=== PATIENT | male | born 1940 | race Caucasian/White ===

== ENCOUNTER 2020-05-09 14:38 | Emergency (ER) | payer OTHER, MEDICARE ==
--- NOTE | 2020-05-09 15:13 | EDM.PDOC ---
ED HPI GENERAL MEDICAL PROBLEM - General Chief Complaint: General Time Seen by Provider: 05/09/20 15:00 Source of Information: Reports: Patient History Limitations: Reports: No Limitations - History of Present Illness INITIAL COMMENTS - FREE TEXT/NARRATIVE: pt comes from home with c/o productive cough, SOB and fever progressively worsening since yesterday, report right elbow pain after a fall he sustained 3 days ago, denies any other injuries or any other medical concerns. pt lives with , denies recent travel or known sick contact, his sats on arrival are 88 , RR 24, P 125 . - Related Data Allergies Allergy/AdvReac Type Severity Reaction Status Date / Time codeine Allergy Hives Verified 05/09/20 15:01 Penicillins Allergy Hives Verified 05/09/20 15:01 ED ROS GENERAL - Review of Systems Review Of Systems: See Below Constitutional: Reports: Fever, Chills, Fatigue HEENT: Reports: No Symptoms Respiratory: Reports: Shortness of Breath, Wheezing, Cough Cardiovascular: Reports: No Symptoms GI/Abdominal: Reports: Bloody Stool, Diarrhea. Denies: Abdominal Pain : Reports: No Symptoms Musculoskeletal: Reports: No Symptoms Skin: Reports: No Symptoms Neurological: Reports: No Symptoms ED EXAM, GENERAL - Physical Exam Exam: See Below Exam Limited By: No Limitations General Appearance: Alert, Anxious, Moderate Distress Eye Exam: Bilateral Eye: Normal Inspection Ears: Normal External Exam, Normal Canal Nose: Normal Inspection Throat/Mouth: Normal Inspection, Normal Oropharynx Head: Atraumatic, Normocephalic Neck: Normal Inspection, Supple, Non-Tender Respiratory/Chest: No Respiratory Distress, Crackles, Rhonchi, Wheezing Cardiovascular: Normal Peripheral Pulses, Regular Rate, Rhythm, No JVD, No Murmur GI/Abdominal: Normal Bowel Sounds, Soft, Non-Tender, No Distention Back Exam: Normal Inspection Extremities: Normal Inspection, Normal Range of Motion, Other (cellulits noted at lateral side of right elbow, ROM at elbow is full. ) Neurological: Alert, Oriented, CN II-XII Intact Skin Exam: Warm Course - Vital Signs Text/Narrative:: labs/ CXR results were explained to pt and his son . pt is resting comfortable , sats at mid 90s on 2 liters, HR down to 105 after fluid bolus, SBP at 120. Blood cultures were taken , pt will be given now Rocephin and Zithromax, was given earlier duo nebs and tyelnol. there are no available beds at this facility now , Dr Kaplan at [facility] was consulted and was in acceptance of pt care. Last Recorded V/S: Last Vital Signs Temp 37.8 C 05/09/20 17:18 Pulse 105 H 05/09/20 17:18 Resp 22 H 05/09/20 17:18 BP 121/67 05/09/20 17:18 Pulse Ox 95 05/09/20 17:18 - Orders/Labs/Meds Orders: Active Orders 24 hr Category Date Time Status RT Aerosol Therapy [RC] ASDIRECTED Care 05/09/20 15:16 Active Chest 1V Frontal [CR] Stat Exams 05/09/20 15:15 Taken Elbow Min 3V Rt [CR] Stat Exams 05/09/20 15:15 Taken COVID-19 SARS COV-2 AB, IGG Routine Lab 05/09/20 15:45 Received COVID-19 SARS COV-2 AB, IGM Stat Lab 05/09/20 15:45 Received CULTURE BLOOD [BC] Urgent Lab 05/09/20 15:30 Received CULTURE BLOOD [BC] Urgent Lab 05/09/20 15:45 Received Acetaminophen [Tylenol] Med 05/09/20 15:15 Active 650 mg PO Q4H PRN Sodium Chloride 0.9% [Normal Saline] Med 05/09/20 15:15 Active 1,000 ml IV ASDIRECTED Sodium Chloride 0.9% [Normal Saline] 1,000 ml Med 05/09/20 16:15 Active IV ASDIRECTED Blood Culture x2 Reflex Set [OM.PC] Urgent Oth 05/09/20 15:17 Ordered Isolation [COMM] Routine Oth 05/09/20 15:16 Ordered Medication Orders Acetaminophen (Tylenol) 650 mg PO Q4H PRN PRN Reason: Fever Last Admin: 05/09/20 16:00 Dose: 650 mg Documented by: JIMMY Sodium Chloride (Normal Saline) 1,000 mls @ 400 mls/hr IV ASDIRECTED ZENIA Sodium Chloride (Normal Saline) 1,000 ml IV ASDIRECTED ZENIA Labs: Laboratory Tests 05/09/20 05/09/20 05/09/20 Range/Units 15:28 15:45 15:45 WBC 27.9 H (4.5-12.0) X10-3/uL RBC 4.96 (4.30-5.75) x10(6)uL Hgb 15.1 (13.5-17.8) g/dL Hct 45.9 (30.0-51.3) % MCV 92.4 (80-96) fL MCH 30.5 (27.7-33.6) pg MCHC 33.0 (32.2-35.4) g/dL RDW 12.8 (11.5-15.5) % Plt Count 259 (125-369) X10(3)uL Sodium 136 (135-145) mmol/L Potassium 3.9 (3.5-5.3) mmol/L Chloride 101 (100-110) mmol/L Carbon Dioxide 22 (21-32) mmol/L BUN 21 H (7-18) mg/dL Creatinine 1.7 H (0.70-1.30) mg/dL Est Cr Clr Drug Dosing TNP Estimated GFR (MDRD) 39 L (>60) BUN/Creatinine Ratio 12.4 (9-20) Glucose 116 (80-116) mg/dL Lactic Acid (0.4-2.0) mmol/L Calcium 8.8 (8.6-10.2) mg/dL Total Bilirubin 0.5 (0.1-1.3) mg/dL AST 41 H (5-25) IU/L ALT 26 (12-36) U/L Alkaline Phosphatase 84 (56-112) IU/L NT-Pro-B Natriuret Pep (<=450) pg/mL Total Protein 7.7 (6.0-8.0) g/dL Albumin 3.2 (3.2-4.6) g/dL Globulin 4.5 g/dL Albumin/Globulin Ratio 0.7 SARS Virus RNA (PCR) Negative (NEGATIVE) 05/09/20 05/09/20 Range/Units 15:45 15:45 WBC (4.5-12.0) X10-3/uL RBC (4.30-5.75) x10(6)uL Hgb (13.5-17.8) g/dL Hct (30.0-51.3) % MCV (80-96) fL MCH (27.7-33.6) pg MCHC (32.2-35.4) g/dL RDW (11.5-15.5) % Plt Count (125-369) X10(3)uL Sodium (135-145) mmol/L Potassium (3.5-5.3) mmol/L Chloride (100-110) mmol/L Carbon Dioxide (21-32) mmol/L BUN (7-18) mg/dL Creatinine (0.70-1.30) mg/dL Est Cr Clr Drug Dosing Estimated GFR (MDRD) (>60) BUN/Creatinine Ratio (9-20) Glucose (80-116) mg/dL Lactic Acid 1.2 (0.4-2.0) mmol/L Calcium (8.6-10.2) mg/dL Total Bilirubin (0.1-1.3) mg/dL AST (5-25) IU/L ALT (12-36) U/L Alkaline Phosphatase (56-112) IU/L NT-Pro-B Natriuret Pep 3893 H* (<=450) pg/mL Total Protein (6.0-8.0) g/dL Albumin (3.2-4.6) g/dL Globulin g/dL Albumin/Globulin Ratio SARS Virus RNA (PCR) (NEGATIVE) Meds: Medications Generic Name Dose Route Start Last Admin Trade Name Freq PRN Reason Stop Dose Admin Acetaminophen 650 mg 05/09/20 15:15 05/09/20 16:00 Tylenol PO 650 mg Q4H PRN Administration Fever Sodium Chloride 1,000 mls @ 400 mls/hr 05/09/20 16:15 Normal Saline IV ASDIRECTED ZENIA Sodium Chloride 1,000 ml 05/09/20 15:15 Normal Saline IV ASDIRECTED ZENIA Discontinued Medications Generic Name Dose Route Start Last Admin Trade Name Freq PRN Reason Stop Dose Admin Albuterol/Ipratropium 3 ml 05/09/20 15:15 05/09/20 16:00 Duoneb 3.0-0.5 Mg/3 Ml NEB 05/09/20 15:16 3 ml ONETIME ONE Administration Departure - Departure Time of Disposition: 17:35 Disposition: DC/Tfer to Other 70 Clinical Impression: Pneumonia - Discharge Information Forms: ED Department Discharge Sepsis Event Note (ED) - Evaluation Sepsis Screening Result: Possible Sepsis Risk - Focused Exam Vital Signs: Vital Signs Temp Pulse Resp BP Pulse Ox 05/09/20 17:18 37.8 C 105 H 22 H 121/67 95 05/09/20 15:00 38.4 C H 124 H 24 H 152/83 H 88 L - My Orders Last 24 Hours: My Active Orders 05/09/20 15:15 Chest 1V Frontal [CR] Stat Elbow Min 3V Rt [CR] Stat Acetaminophen [Tylenol] 650 mg PO Q4H PRN Sodium Chloride 0.9% [Normal Saline] 1,000 ml IV ASDIRECTED 05/09/20 15:16 RT Aerosol Therapy [RC] ASDIRECTED Isolation [COMM] Routine 05/09/20 15:17 Blood Culture x2 Reflex Set [OM.PC] Urgent 05/09/20 15:30 CULTURE BLOOD [BC] Urgent 05/09/20 15:45 COVID-19 SARS COV-2 AB, IGG Routine COVID-19 SARS COV-2 AB, IGM Stat CULTURE BLOOD [BC] Urgent 05/09/20 16:15 Sodium Chloride 0.9% [Normal Saline] 1,000 ml IV ASDIRECTED - Assessment/Plan Last 24 Hours: My Active Orders 05/09/20 15:15 Chest 1V Frontal [CR] Stat Elbow Min 3V Rt [CR] Stat Acetaminophen [Tylenol] 650 mg PO Q4H PRN Sodium Chloride 0.9% [Normal Saline] 1,000 ml IV ASDIRECTED 05/09/20 15:16 RT Aerosol Therapy [RC] ASDIRECTED Isolation [COMM] Routine 05/09/20 15:17 Blood Culture x2 Reflex Set [OM.PC] Urgent 05/09/20 15:30 CULTURE BLOOD [BC] Urgent 05/09/20 15:45 COVID-19 SARS COV-2 AB, IGG Routine COVID-19 SARS COV-2 AB, IGM Stat CULTURE BLOOD [BC] Urgent 05/09/20 16:15 Sodium Chloride 0.9% [Normal Saline] 1,000 ml IV ASDIRECTED
[2020-05-09] MEDS ORDERED: Albuterol/Ipratropium 3.0-0.5 MG/3 ML Neb Soln NEB ONE (15:15)
[2020-05-09] MEDS ORDERED: Acetaminophen 325 MG Tab PO PRN (15:15)
[2020-05-09] MEDS ORDERED: Sodium Chloride 0.9% 10 ML SDV IV SCH (15:15)
[2020-05-09] MEDS ORDERED: Sodium Chloride 0.9% 1,000 ML IV SCH (16:15)
[2020-05-09] MEDS ORDERED: Azithromycin 500 MG in Sodium Chloride 0.9% 250 ML IV ONE (17:33)
[2020-05-09] MEDS ORDERED: cefTRIAXone 1 GM in Sodium Chloride 0.9% 50 ML IV ONE (17:33)
[2020-05-12 14:12] LABS: SARS COV-2 IGM AB Negative (Negative)
== END 2020-05-09 18:58 | disposition other institution (70) ==
LOC: FB.ED 14:38
DX: J18.9 Pneumonia, unspecified organism (principal); L03.113 Cellulitis of right upper limb; Z20.828 Contact with and (suspected) exposure to other viral communicable diseases; Z88.5 Allergy status to narcotic agent; Z88.0 Allergy status to penicillin
CPT/HCPCS: 36415; 71045; 73080; 80053; 83605; 83880; 85027; 86769; 87040; 87635; 87804; 93005; 94640; 96365; 96367; 99285; A9270; J0456; J0696; J7030; J7050; J7620-GY; U0002